=== PATIENT | female | born 1990 | race Caucasian/White ===

== ENCOUNTER 2022-03-05 13:38 | Outpatient (CLI) | payer BC, SELFPAY ==
[2022-03-05 16:53] LABS: Iron* 22 ug/dL (37-170)
[2022-03-05 17:02] LABS: Percent Iron Saturation 5 % (20-50); Total Iron Binding Capacity 455 ug/dL (265-497)
[2022-03-05 17:30] LABS: Ferritin* 6.9 ng/mL (6.24-137.0)
== END 2022-03-05 13:39 | disposition home or self-care (01) ==
PROVIDERS: Visit Provider Registered Nurse
DX: N93.9 Abnormal uterine and vaginal bleeding, unspecified (principal)
CPT/HCPCS: 82728; 83540; 83550; 84443

== ENCOUNTER 2022-03-12 07:05 | Outpatient (CLI) | payer BC, SELFPAY ==
--- NOTE | 2022-03-12 07:15 | CRLHL7_ITS ---
For Patients: As a result of the Century Cures Act, medical imaging exams and procedure reports are released immediately into your electronic medical record. You may view this report before your referring provider. If you have questions, please contact your health care provider. INDICATION: Abnormal UTERINE BLEEDING COMPARISON: 12.19.20 TECHNIQUE: 2D garza scale and color Doppler images were acquired of the pelvis using a transabdominal and transvaginal approach. FINDINGS: Sonographic images demonstrate a normal size and lobular outer contour of the uterus. Uterus measures 11.5 cm in length by 6.3 cm in AP diameter by 7.9 cm in transverse dimension. Multiple uterine leiomyomata present. Left posterior fundal intramural fibroid measuring 1.8 x 1.5 x 1.8 cm. Right anterior intramural fundal fibroid measuring 2.1 x 1.7 x 1.9 cm. Small midline intramural fundal fibroid measuring 9 x 8 x 9 millimeters. Cervical nabothian cysts. The myometrium has a heterogeneous echotexture. The endometrial lining appears heterogeneous and measures 12 mm in composite thickness. The right ovary measures 3.6 x 3.0 x 3.1 cm in size and the left ovary measures 2.7 x 1.8 x 2.9 cm. Small cyst right ovary. The ovaries demonstrate normal arterial and venous blood flow on color Doppler analysis. There are no suspicious fluid collections within the cul-de-sac. IMPRESSION: Multiple uterine fibroids measuring up to 2.1 cm. Heterogeneously thickened endometrium measuring 12 millimeters. Dictated by Gilmer Chacko MD @ 03/12/2022 8:38:13 AM (Electronically Signed)
--- NOTE | 2022-04-04 11:50 | ONC.NURNOTE ---
Patient was due to see Hematology in February, attempted to call multiple times without return call. Then received request for IV iron infusions and tried to call to schedule x3, no return call. Talked with [facility] to let them know that unable to reach and will disregard order that was sent.
== END 2022-03-12 07:06 | disposition home or self-care (01) ==
PROVIDERS: Visit Provider Registered Nurse
DX: N93.9 Abnormal uterine and vaginal bleeding, unspecified (principal); D25.9 Leiomyoma of uterus, unspecified; R93.89 Abnormal findings on diagnostic imaging of other specified body structures
CPT/HCPCS: 76830; 76856

== ENCOUNTER 2022-05-10 08:48 | Outpatient (CLI) | payer BC, SELFPAY ==
[2022-05-10 09:20] LABS: Hematocrit 34.6 % (33.0-51.0); Mean Corpuscular HGB Conc 29 gm/dL (32-36); Mean Corpuscular Hemoglobin 22 pg (26-34); Mean Corpuscular Volume 77 fL (80-100); Platelet Count* 408 K/uL (140-440); Red Blood Count 4.51 m/uL (4.00-5.20); White Blood Count* 5.01 K/uL (4.50-11.00)
[2022-05-10 09:25] LABS: Hemoglobin A1C* 5.8 % (0-5.6)
[2022-05-10 11:08] LABS: Iron* 29 ug/dL (37-170)
[2022-05-10 11:16] LABS: Cholesterol* 141 mg/dL (90-199); Triglycerides* 129 mg/dL (40-149)
[2022-05-10 11:17] LABS: HDL Cholesterol* 45 mg/dL (>=50); LDL Cholesterol Calculated 70 mg/dL (<100)
[2022-05-10 11:18] LABS: Percent Iron Saturation 7 % (20-50); Total Iron Binding Capacity 448 ug/dL (265-497)
[2022-05-10 11:46] LABS: Ferritin* 9.7 ng/mL (6.24-137.0)
[2022-05-10 12:43] LABS: Slide Review Reflex Yes
[2022-05-10 14:23] LABS: Slide Review Acceptable Review (Acceptable)
[2022-05-13 12:26] LABS: Prolactin 9.2 ng/mL (2.8-29.2)
== END 2022-05-10 08:49 | disposition home or self-care (01) ==
PROVIDERS: Visit Provider Registered Nurse
DX: N93.9 Abnormal uterine and vaginal bleeding, unspecified (principal); D50.9 Iron deficiency anemia, unspecified; R03.0 Elevated blood-pressure reading, without diagnosis of hypertension; E66.01 Morbid (severe) obesity due to excess calories; Z68.41 Body mass index [BMI] 40.0-44.9, adult; Z13.6 Encounter for screening for cardiovascular disorders
CPT/HCPCS: 80061; 82728; 83036; 83540; 83550; 84146; 85027

== ENCOUNTER 2023-06-05 09:45 | Outpatient (CLI) | payer BC, SELFPAY | END 2023-06-05 09:46 | disposition home or self-care (01) | PROVIDERS: Visit Provider Physician Assistant | DX: N93.8 Other specified abnormal uterine and vaginal bleeding (principal) | CPT/HCPCS: 82728; 84443; 84703 ==

== ENCOUNTER 2023-07-11 08:00 | Outpatient (RCR) | payer BC, SELFPAY ==
--- NOTE | 2023-06-18 09:57 | URNOTE ---
Per [employer], prior authorization is not required for Asim ([id number]). Ref #[id number]
[2023-06-23 08:17] VITALS: BP 134/81; PULSE 81; RESP 18; TEMP 36.9; O2SAT 95
[2023-06-23] MEDS: IRON SUCROSE COMPLEX 200 MG in 0.9 % SODIUM CHLORIDE 100 ml 440 MG IVPB (08:30)
[2023-06-26 08:21] VITALS: BP 141/83; PULSE 73; RESP 16; TEMP 36.6; O2SAT 99
[2023-06-26] MEDS: 0.9 % SODIUM CHLORIDE 250 ml IV (08:47)
[2023-06-26] MEDS: IRON SUCROSE COMPLEX 200 MG in 0.9 % SODIUM CHLORIDE 100 ml 440 MG IVPB (08:47)
[2023-06-26] MEDS: SODIUM CHLORIDE 0.9 % (FLUSH) 10 ML SYRINGE IVF (08:47)
[2023-07-03] MEDS: 0.9 % SODIUM CHLORIDE 250 ml IV (08:20)
[2023-07-03 08:25] VITALS: BP 131/84; PULSE 75; RESP 16; TEMP 36.7; O2SAT 97
[2023-07-03] MEDS: IRON SUCROSE COMPLEX 200 MG in 0.9 % SODIUM CHLORIDE 100 ml 440 MG IVPB (08:53)
[2023-07-09 08:15] VITALS: BP 124/78; PULSE 76; RESP 16; TEMP 36.2; O2SAT 99
[2023-07-09] MEDS: SODIUM CHLORIDE 0.9 % (FLUSH) 10 ML SYRINGE IVF (08:32)
[2023-07-09] MEDS: IRON SUCROSE COMPLEX 200 MG in 0.9 % SODIUM CHLORIDE 100 ml 440 MG IVPB (08:32)
[2023-07-09] MEDS: 0.9 % SODIUM CHLORIDE 250 ml IV (08:32)
[2023-07-09 09:25] VITALS: BP 139/82; PULSE 67; RESP 14; TEMP 36.1; O2SAT 97
[2023-07-11] MEDS: IRON SUCROSE COMPLEX 200 MG in 0.9 % SODIUM CHLORIDE 100 ml 440 MG IVPB (08:26)
[2023-07-11 08:33] VITALS: BP 130/77; PULSE 70; RESP 16; TEMP 36.2; O2SAT 97
[2023-07-11 08:45] VITALS: BP 123/84; PULSE 73; RESP 16; TEMP 36.4; O2SAT 96
[2023-07-11 09:26] VITALS: BP 116/65; PULSE 77; RESP 16; TEMP 36.9; O2SAT 97
== END 2023-12-20 23:59 | disposition home or self-care (01) ==
LOC: CCIC 08:00
PROVIDERS: Visit Provider Physician Assistant
DX: D50.9 Iron deficiency anemia, unspecified (principal)
CPT/HCPCS: 96365; 96374; J1756; J7050

== ENCOUNTER 2024-03-25 11:53 | Emergency (ER) | payer BC, SELFPAY ==
[2024-03-25] VITALS (12 sets, daily range): BP systolic 118–136; BP diastolic 56–83; PULSE 71–90; RESP 12–18; TEMP 36.5–37; O2SAT 97–100; BMI 44.8
--- NOTE | 2024-03-25 13:28 | ED.GENADULT ---
HPI - General Adult General Chief complaint: Vaginal Bleeding Stated complaint: Needs blood transfusion Time Seen by Provider: 03/25/24 12:01 History of Present Illness HPI narrative: Patient is a 34-year-old woman sent here by clinic for transfusion, she has a long history of vaginal bleeding, fibroids, significant anemia requiring transfusion. Hemoglobin today was 4.9. She is a little fatigued but not overtly symptomatic. It was 6 last time it was checked. She has been bleeding she says for the past month and a half, historically norethindrone has resolved the bleeding. She has been very poor about following up for iron infusions, other tests, or scheduled follow-up. Related Data Home Medications ?Medication ?Instructions ?Recorded ?Confirmed ferrous fumarate-vitamin C 66 tab PO BID 03/05/22 03/25/24 mg-125 mg chewable tablet ibuprofen 200 mg tablet mg PO Q8H PRN 03/05/22 03/25/24 Previous Rx's ?Medication ?Instructions ?Recorded norethindrone acetate 5 mg tablet 5 mg PO QDAY #25 tabs 03/25/24 Allergies Allergy/AdvReac Type Severity Reaction Status Date / Time No Known Allergies Allergy Verified 03/25/24 10:49 PFSH PFS Medical History Family history of breast cancer in mother ?Z80.3 - Family history of malignant neoplasm of breast (ICD-10) History of varicella ?Z86.19 - Personal history of other infectious and parasitic diseases (ICD-10) History of ovarian cyst ?Z87.42 - Personal history of other diseases of the female genital tract (ICD-10) History of endometrial biopsy ?Z92.89 - Personal history of other medical treatment (ICD-10) History of blood transfusion (2016) ?Z92.89 - Personal history of other medical treatment (ICD-10) Surgical History History of dilation and curettage (2011) ?Z98.890 - Other specified postprocedural states (ICD-10) Family History Mother Breast cancer Brother Cancer Father High blood pressure Prostate cancer Diabetes Social History (Reviewed 06/05/23 @ 11:57 by LEONA Rmaires Narrative: Non-smoker What is your current living situation?: I presently have a place to live Problems where you live: no known problems In the past 12 months, utilities in danger of being shut off: no In past 12 months, lack of transportation kept you from medical appts, meetings, work, or getting things needed for daily living: no In the past 12 mos, have been you worried that your food would run out before you had money to buy more?: never true In the past 12 mos, the food you bought just didn't last and you didn't have money to buy more?: never true Smoking Status: Never smoker How often do you have a drink containing alcohol: never AUDIT-C Alcohol total score: 0 Non-prescribed substance use: denies use How often does anyone, including family, friends and others, physically hurt you: never How often does anyone, including family, friends and others, insult or talk down to you: never How often does anyone, including family, friends and others, threaten you with harm: never How often does anyone, including family, friends and others, scream or curse at you: never Exam Narrative: Exam Narrative: Vital signs reviewed, normal. Heart: Regular rate and rhythm. Abdomen: Soft, nontender. Const: Vital Signs, click to edit/add: Vital Signs - 24 hr 03/25/24 12:05 03/25/24 15:00 03/25/24 15:07 Temperature 97.7 F Pulse Rate 71 84 Pulse Rate [Left P ulse Oximeter] 83 Respiratory Rate 18 16 16 Blood Pressure 135/70 135/70 Blood Pressure [Ri ght Upper Arm] 129/83 Pulse Oximetry 98 99 97 Oxygen Delivery Me thod Room Air 03/25/24 15:23 03/25/24 15:53 03/25/24 16:40 Temperature 97.8 F 98.6 F 98.0 F Pulse Rate 81 86 90 Pulse Rate [Left P ulse Oximeter] Respiratory Rate 14 12 14 Blood Pressure 124/70 122/56 L 122/56 L Blood Pressure [Ri ght Upper Arm] Pulse Oximetry 99 100 97 Oxygen Delivery Me thod 03/25/24 16:51 03/25/24 17:00 03/25/24 17:07 Temperature 97.9 F 97.8 F Pulse Rate 88 81 82 Pulse Rate [Left P ulse Oximeter] Respiratory Rate 16 14 16 Blood Pressure 125/58 L 118/56 L 118/56 L Blood Pressure [Ri ght Upper Arm] Pulse Oximetry 97 99 97 Oxygen Delivery Me thod 03/25/24 17:37 03/25/24 18:07 Temperature 97.7 F 97.7 F Pulse Rate 81 81 Pulse Rate [Left P ulse Oximeter] Respiratory Rate 14 14 Blood Pressure 120/65 136/77 Blood Pressure [Ri ght Upper Arm] Pulse Oximetry 100 99 Oxygen Delivery Me thod Course Course ED Course: I had a lengthy conversation with her, she acknowledges that she has not been good about follow-up, I get the sense that she has a fair amount of avoidance of this issue as she really hopes to be able to get and knows that this is a barrier to that. I did review records, she had a visit with Dr. Gene Weinstein in 2021 at which time they had a lengthy conversation about her bleeding, infertility etcetera. She did not follow-up with the advised plan at that time. For today, she declined an ultrasound, would rather do that as an outpatient. October was going to call an norethindrone for her and she acknowledges that that tends to stop the bleeding. I transfused 2 units of packed red cells, she tolerated this well without complication. Risks and benefits discussed. I have recommended that she pursue the treatment plan outlined by Dr. Gene Weinstein which included endometrial biopsy, Cytotec likely needed as there was difficulty with doing a biopsy previously. She is also to have iron infusions. I have stressed to her that the only way that this problem will be resolved is if she follows up in keeps appointments as recommended. She was quite tearful while we talked, the subject is very stressful for her, she did deny significant depression or anxiety or any help from a mental health standpoint. She has 2 foster children whom they are soon going to be adopting and she is happy about that, but continues to hope that she can conceive a child at some point. She should sheepskin pickler the prescription from October for the norethindrone, follow up for INR infusions etcetera. Vital Signs Vital signs: Initial Vital Signs Temperature Source Temporal Artery Scan 03/25/24 12:05 Pulse Rate 83 03/25/24 12:05 Pulse Rhythm Regular 03/25/24 12:05 Pulse Strength 3+ Normal 03/25/24 12:05 Respiratory Rate 18 03/25/24 12:05 Blood Pressure 129/83 03/25/24 12:05 Blood Pressure Mean 98 03/25/24 12:05 Pulse Oximetry 98 03/25/24 12:05 Oxygen Delivery Method Room Air 03/25/24 12:05 Vital Signs Pulse Rate 83 03/25/24 12:05 Respiratory Rate 18 03/25/24 12:05 Blood Pressure 129/83 03/25/24 12:05 Pulse Oximetry 98 03/25/24 12:05 Oxygen Delivery Method Room Air 03/25/24 12:05 Temperature 97.7 F 03/25/24 18:07 Pulse Rate 81 03/25/24 18:07 Respiratory Rate 14 03/25/24 18:07 Blood Pressure 136/77 03/25/24 18:07 Pulse Oximetry 99 03/25/24 18:07 Oxygen Delivery Method Room Air 03/25/24 12:05 Medications Administered Medications: Generic Name Dose Route Start Last Admin Trade Name Freq PRN Reason Stop Dose Admin Sodium Chloride 250 ml 03/25/24 12:41 03/25/24 15:18 0.9 % Sodium Chloride 250 Ml IV 03/26/24 23:59 250 ml ONCE PRN Administration Medical Decision Making Lab Data Labs: Lab Results 03/25/24 Range/Units 13:26 Blood Type O Negative Antibody Screen NEGATIVE Crossmatch (AHG) See Detail Discharge Plan Discharge Clinical Impression: Severe anemia, Abnormal uterine bleeding Patient Disposition: Home, Self-Care Condition: Improved Instructions: Abnormal (Dysfunctional) Uterine Bleeding (ED), Anemia (ED) Additional Instructions: Fill norethindrone prescription as prescribed by October. I looked back through your records, you have previously seen Dr. Sheehan, 1 of our gynecologists [facility]. This was in 2021, you did discuss with her infertility at that time, and plans were made for repeat endometrial biopsy with cytotec. It does not look like this ever happened, and I would strongly encourage you to return to that treatment plan as outlined by her. In order to successfully manage this, you will need to make sure to keep follow-up appointments as scheduled. Return as needed to the emergency department. Prescriptions: No Action ferrous fumarate-vitamin C 66-125 mg tablet,chewable PO BID ibuprofen 200 mg tablet PO Q8H PRN norethindrone acetate 5 mg tablet 5 mg PO QDAY Qty: 25 0RF Rx Instructions: 5mg QID until the bleeding stops, then TID x 3 days, then BID x 3 days, then QD x 3 days Follow Up/Referrals: Provider,Not a Local [Primary Care Provider] - Stand Alone Forms: [facility] Info Instructions
[2024-03-25] MEDS: 0.9 % SODIUM CHLORIDE 250 ml IV (15:18)
== END 2024-03-25 19:27 | disposition home or self-care (01) ==
PROVIDERS: Emergency Provider Emergency Medicine
DX: N93.9 Abnormal uterine and vaginal bleeding, unspecified (principal); D64.9 Anemia, unspecified
CPT/HCPCS: 36415; 36430; 82728; 86850; 86900; 86901; 86922; 99283; 99284; J7050; P9016